=== PATIENT | female | born 1970 | race Two or more races ===

== ENCOUNTER 2023-04-27 04:22 | Emergency (ER) | payer OTHER ==
[~2023-04-27] VITALS: Ht 170.2 cm; Wt 108.9 kg
[2023-04-27] MEDS ORDERED: LABETALOL HCL200 MG PO (04:51)
[2023-04-27 05:48] LABS: HEMATOCRIT 39.7 % (36.0-45.00); HEMOGLOBIN 12.6 g/dL (12.0-15.00); MEAN CELL VOLUME 80.4 fL (80.00-100.00); MEAN CORPUSCULAR HEMOGLOBIN 25.4 pg (27.00-32.0); MEAN CORPUSCULAR HGB CONC 31.6 g/dl (32.0-36.0); PLATELET COUNT 158 K/uL (150-450); RED BLOOD COUNT 4.94 M/uL (4.00-6.00); RED CELL DISTRIBUTION WIDTH 14.5 % (11.5-14.5)
[2023-04-27 06:00] LABS: URINE APPEARANCE Clear; URINE BILIRRUBIN Negative (NEGATIVE); URINE BLOOD Trace; URINE COLOR Yellow; URINE GLUCOSE Negative (NEGATIVE); URINE LEUKOCYTE Trace; URINE NITRATE Negative; URINE PROTEIN Negative (NEGATIVE); URINE UROBILINOGEN 0.2 E.U./dl
[2023-04-27 06:04] LABS: URINE EPITHELIAL CELLS 17.9 uL (0.0-38.8); URINE RBC 15.3 uL (0.0-20.8); URINE WBC 55.6 uL (0.0-23.2)
[2023-04-27] MEDS ORDERED: BACTRIM DS TAB1 EACH PO (06:14)
== END 2023-04-27 06:22 | disposition home or self-care (01) ==
LOC: ER 04:22
PROVIDERS: General Practice
DX: N39.0 Urinary tract infection, site not specified (principal); R50.9 Fever, unspecified; I10 Essential (primary) hypertension; Z20.822 Contact with and (suspected) exposure to COVID-19